=== PATIENT | female | born 1985 | race Caucasian/White ===

== ENCOUNTER 2017-11-01 15:44 | Emergency (ER) | payer OTHER ==
[~2017-11-01] VITALS: Ht 162.6 cm; Wt 63.9 kg
[2017-11-01 15:48] VITALS: BP 129/79; PULSE 80; TEMP 36.5; O2SAT 100; Ht 162.6 cm; Wt 63.9 kg
[2017-11-01] MEDS ORDERED: LORA-741 PO (15:57)
[2017-11-01] MEDS ORDERED: SERT50TA PO (15:57)
--- NOTE | 2017-11-01 21:07 | EMERGENCY ROOM VISIT NOTE ---
ED Visit Note First contact with patient: 15:54 Chief Complaint: Needlestick injury. History of Present Illness: Ms. Montana is a 32-year-old white female who ambulates into the ED complaining of a needlestick injury to the right thumb. 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 She reports approximately 1 hour before she arrived in the emergency department she had just finished drawing blood on the patient and was attempting to put the safety mechanism over her phlebotomy needle and accidentally stuck her right thumb. She reports immediately after the wound she wash the area. Currently she has no associated symptoms and denies any pain in the area of the needlestick. Review of Systems: As noted above in history of present illness. Past Medical History: Patient denies. Current Medications: Zoloft, Ativan. Allergies to Medications: Penicillin. Social History: Patient is currently a student; she feels safe in her home environment; she denies tobacco use. Tetanus Immunization Status: Patient reports up-to-date. Physical Examination: Vital Signs: Date Time Temp Pulse Resp B/P (MAP) Pulse Ox O2 Delivery O2 Flow Rate FiO2 11/01/17 15:48 36.5 80 20 129/79 100 Room Air GENERAL: 32-year-old female in no acute distress, nontoxic-appearing, afebrile and hemodynamically stable. NEUROLOGICAL: Awake, alert and oriented to person, place and time. Answering questions appropriately and following commands. Good hand eye coordination. SKIN: Warm, dry and pink. Right Thumb: Single puncture wound noted over the finger tuft without bleeding or erythema. ED Course: Patient is assessed as noted above. Patient's medication list was reviewed. Pre-test counseling was performed with the patient including the risks and benefits of testing, the possibility of false positive and false negative testing and the need for follow-up. Patient expressed concerns about pavement of her services; I did inform her that this was not normal to have a student injured and be seen in our emergency department. It was requested by [facility] that the patient be seen. I did inform her I did not know exactly how insurance coverage is would work and that she should question her school and/or her insurance. Clinical Impression: Blood exposure. Needlestick injury. Disposition: Patient discharged home in stable condition. Plan: Comfort measures, wound care and signs of infection were discussed with the patient. Patient was encouraged to follow-up with [facility] for her testing results. Patient was encouraged to follow-up in the emergency department for any signs of infection or any new/concerning symptoms.
[2017-11-02 11:12] LABS: HEP C IGG 13 YRS+OLDER_RFLX NEG (NEG)
== END 2017-11-01 16:40 | disposition home or self-care (01) ==
LOC: C.EDB 15:47 → C.EDD 16:40
DX: Z77.21 Contact with and (suspected) exposure to potentially hazardous body fluids (principal); S61.031A Puncture wound without foreign body of right thumb without damage to nail, initial encounter; W46.1XXA Contact with contaminated hypodermic needle, initial encounter; Z88.0 Allergy status to penicillin